=== PATIENT | female | born 1965 | race Caucasian/White ===

== ENCOUNTER 2017-12-12 11:15 | Emergency (ER) | payer SELFPAY ==
[~2017-12-12 11:15] MED LIST: BUSP15TA PO; CITA40TA4 PO; DIVA500T PO; GLUCTES27; METF500T PO; QUET1TAB10 PO; QUET1TAB8 PO
[2017-12-12 11:48] VITALS: BP 114/55; PULSE 96; RESP 18; TEMP 97.4; O2SAT 100
[2017-12-12 12:58] LABS: AUTOMATED NEUTROPHIL # 4.2 TH/MM3 (1.8-7.7); BASOPHIL % 0.5 % (0.0-2.0); EOSINOPHIL # 0.1 TH/MM3 (0-0.4); EOSINOPHIL % 1.4 % (0.0-4.0); HEMATOCRIT 41.2 % (35.0-46.0); HEMOGLOBIN 13.9 GM/DL (11.6-15.3); LYMPHOCYTE # 1.8 TH/MM3 (1.0-4.8); MEAN CORPUSCULAR HEMOGLOBIN 27.7 PG (27.0-34.0); MEAN CORPUSCULAR HGB CONC 33.7 % (32.0-36.0); MEAN PLATELET VOLUME 8.3 FL (7.0-11.0); MONO % 9.7 % (0.0-8.0); MONOCYTE # 0.7 TH/MM3 (0-0.9); NEUT % 61.4 % (16.0-70.0); PLATELET COUNT 253 TH/MM3 (150-450); RED BLOOD COUNT 5.02 MIL/MM3 (4.00-5.30); RED CELL DISTRIBUTION WIDTH 14.7 % (11.6-17.2); WHITE BLOOD COUNT 6.8 TH/MM3 (4.0-11.0)
[2017-12-12 13:05] LABS: BILIRUBIN, URINE NEG (NEG); BLOOD, URINE NEG (NEG); GLUCOSE,URINE 1000 mg/dL (NEG); KETONE, URINE NEG (NEG); NITRITE,URINE NEG (NEG); PH, URINE 5.5 (5.0-8.5); URINE COLOR LIGHT-YELLOW (YELLW/STRAW); URINE LEUKOCYTE ESTERASE NEG (NEG)
[2017-12-12 13:30] LABS: ALBUMIN 3.6 GM/DL (3.4-5.0); ALKALINE PHOSPHATASE 86 U/L (45-117); ALT (GPT) 22 U/L (10-53); AST (GOT) 19 U/L (15-37); BICARBONATE 25.8 MEQ/L (21.0-32.0); BLOOD UREA NITROGEN 20 MG/DL (7-18); CALCIUM 10.2 MG/DL (8.5-10.1); CHLORIDE 98 MEQ/L (98-107); CREATININE 0.98 MG/DL (0.50-1.00); GLOMERULAR FILTRATION RATE 60 ML/MIN (>89); GLUCOSE,RANDOM 417 MG/DL (74-106); SODIUM (NA) 134 MEQ/L (136-145); TOTAL BILIRUBIN ADULT 0.2 MG/DL (0.2-1.0); TOTAL PROTEIN 8.2 GM/DL (6.4-8.2)
[2017-12-12] MEDS ORDERED: METF500T PO (15:44)
--- NOTE | 2017-12-12 15:44 | PD ---
HPI Chief Complaint: Abdominal Pain Time Seen by Provider: 15:19 Travel History International Travel<30 days: No Contact w/Intl Traveler<30days: No Traveled to known affect area: No History of Present Illness HPI 51yo F with PMH of NIDDM presents to the ED with c/o upper abdominal pain starting at 9am today. Said it feels cold around her upper abdomen to her back. Said it happened after she drank chocolate milk. She took some peptol bismol and came to the ED. Denies any fever, chest pain, sob, n/v, dysuria, hematuria, diarrhea, focal weakness or numbness. PFSH Past Medical History Hx Anticoagulant Therapy: Yes (asa) Bipolar Disorder: Yes Anxiety: Yes Depression: Yes Cancer: No Cardiovascular Problems: No Cerebrovascular Accident: Yes Diabetes: Yes Endocrine: Yes Genitourinary: No Immune Disorder: No Musculoskeletal: No Neurologic: No Psychiatric: Yes Reproductive: No Respiratory: No Immunizations Current: No Thyroid Disease: Yes Tubal Ligation: Yes Past Surgical History Gynecologic Surgery: Yes (hysterectomy ) Other Surgery: No Social History Alcohol Use: Yes (occassional) Tobacco Use: No Substance Use: No Allergies-Medications (Allergen,Severity, Reaction): Coded Allergies: No Known Allergies (Unverified Adverse Reaction, Unknown, 12/12/17) Reported Meds & Prescriptions Reported Meds & Active Scripts Active Metformin (Metformin HCl) 500 Mg Tab 500 Mg PO DAILY With a meal Lizhi Next Blood Test Strips (Blood Glucose Test Strips) 1 Piedad Piedad 1 Strip .ROUTE DIRECTED Quetiapine (Quetiapine Fumarate) 300 Mg Tab 300 Mg PO HS Quetiapine (Quetiapine Fumarate) 100 Mg Tab 100 Mg PO BID Buspirone (Buspirone HCl) 15 Mg Tab 15 Mg PO TID Citalopram (Citalopram Hydrobromide) 40 Mg Tab 40 Mg PO DAILY Divalproex DR (Divalproex Sodium) 500 Mg Tabdr 500 Mg PO TID Metformin (Metformin HCl) 500 Mg Tab 500 Mg PO DAILY With a meal Review of Systems Except as stated in HPI: all other systems reviewed are Neg Physical Exam Narrative GENERAL: 51yo F not in distress. SKIN: Focused skin assessment warm/dry. HEAD: Atraumatic. Normocephalic. EYES: Pupils equal and round. No scleral icterus. No injection or drainage. CARDIOVASCULAR: Regular rate and rhythm. No murmur appreciated. RESPIRATORY: No accessory muscle use. Clear to auscultation. Breath sounds equal bilaterally. GASTROINTESTINAL: Abdomen soft, non-tender, nondistended. No rebound tenderness or guarding. No RUQ ttp. MUSCULOSKELETAL: No obvious deformities. No clubbing. No cyanosis. No edema. NEUROLOGICAL: Awake and alert. No obvious cranial nerve deficits. Motor grossly within normal limits. Normal speech. PSYCHIATRIC: Appropriate mood and affect; insight and judgment normal. Data Data Last Documented VS Vital Signs Date Time Temp Pulse Resp B/P (MAP) Pulse Ox O2 Delivery O2 Flow Rate FiO2 12/12/17 16:01 98 14 118/77 (91) 98 Room Air 12/12/17 11:48 97.4 Orders Orders Complete Blood Count With Diff (12/12/17 11:52) Comprehensive Metabolic Panel (12/12/17 11:52) Lipase (12/12/17 11:52) Urinalysis - C+S If Indicated (12/12/17 11:52) Metformin (Glucophage) (12/12/17 15:45) Ed Discharge Order (12/12/17 16:26) Labs Laboratory Tests Test 12/12/17 12:10 12/12/17 12:22 Urine Color LIGHT-YELLOW Urine Turbidity CLEAR Urine pH 5.5 Urine Specific [place] 1.041 Urine Protein NEG mg/dL Urine Glucose (UA) 1000 mg/dL Urine Ketones NEG mg/dL Urine Occult Blood NEG Urine Nitrite NEG Urine Bilirubin NEG Urine Urobilinogen LESS THAN 2.0 MG/DL Urine Leukocyte Esterase NEG Urine RBC LESS THAN 1 /hpf Urine WBC LESS THAN 1 /hpf Microscopic Urinalysis Comment CULT NOT INDICATED White Blood Count 6.8 TH/MM3 Red Blood Count 5.02 MIL/MM3 Hemoglobin 13.9 GM/DL Hematocrit 41.2 % Mean Corpuscular Volume 82.0 FL Mean Corpuscular Hemoglobin 27.7 PG Mean Corpuscular Hemoglobin Concent 33.7 % Red Cell Distribution Width 14.7 % Platelet Count 253 TH/MM3 Mean Platelet Volume 8.3 FL Neutrophils (%) (Auto) 61.4 % Lymphocytes (%) (Auto) 27.0 % Monocytes (%) (Auto) 9.7 % Eosinophils (%) (Auto) 1.4 % Basophils (%) (Auto) 0.5 % Neutrophils # (Auto) 4.2 TH/MM3 Lymphocytes # (Auto) 1.8 TH/MM3 Monocytes # (Auto) 0.7 TH/MM3 Eosinophils # (Auto) 0.1 TH/MM3 Basophils # (Auto) 0.0 TH/MM3 CBC Comment DIFF FINAL Differential Comment Blood Urea Nitrogen 20 MG/DL Creatinine 0.98 MG/DL Random Glucose 417 MG/DL Total Protein 8.2 GM/DL Albumin 3.6 GM/DL Calcium Level 10.2 MG/DL Alkaline Phosphatase 86 U/L Aspartate Amino Transf (AST/SGOT) 19 U/L Alanine Aminotransferase (ALT/SGPT) 22 U/L Total Bilirubin 0.2 MG/DL Sodium Level 134 MEQ/L Potassium Level 4.8 MEQ/L Chloride Level 98 MEQ/L Carbon Dioxide Level 25.8 MEQ/L Anion Gap 10 MEQ/L Estimat Glomerular Filtration Rate 60 ML/MIN Lipase 191 U/L [facility] Medical Decision Making Medical Screen Exam Complete: Yes Emergency Medical Condition: Yes Differential Diagnosis Pancreatitis vs. colitis vs. gastroenteritis Narrative Course 51yo F with abdominal pain that started at 9am today. Labs were drawn at triage. However, pt said her abdominal pain has completely resolved now. Pt has no abdominal tenderness to palpation. Labs reviewed, no leukocytosis. H/H normal. BUN mildly elevated at 20. Pt tolerating PO and can hydrate orally. Glucose is elevated at 417. CO2 normal. No increased anion gap. LFT normal. Lipase normal. Pt said she has not been taking her metformin 500mg daily since she only have a few pills left and her primary care physician wont give her a refill until her appointment. Pt did not take it today. Pt given metformin. UA showed no blood. No leukocyte. Labs reassuring and pt has no complaints now. Return precautions given. Diagnosis Primary Impression: Uncontrolled blood glucose Patient Instructions: General Instructions Departure Forms: Tests/Procedures Additional Instructions: Please follow up with your primary care physician as soon as you can. Return to the ED if symptoms return. Med/Other Pt SpecificInfo: Prescription(s) given Scripts Metformin (Metformin) 500 Mg Tab 500 MG PO DAILY for Blood Sugar Management, #14 TAB 0 Refills With a meal Prov: JayAmaya DO 12/12/17 Disposition: 01 DISCHARGE HOME Condition: Stable Amaya Jay DO Dec 12, 2017 15:44
[2017-12-12] MEDS ORDERED: metFORMIN HCL 500 MG TAB PO ONE (15:45)
[2017-12-12 16:01] VITALS: BP 118/77; PULSE 98; RESP 14; O2SAT 98
[2017-12-12 16:41] VITALS: TEMP 97.6
== END 2017-12-12 17:02 | disposition home or self-care (01) ==
LOC: NEPD 11:15
DX: E11.65 Type 2 diabetes mellitus with hyperglycemia (principal); R10.10 Upper abdominal pain, unspecified; E07.9 Disorder of thyroid, unspecified; F31.9 Bipolar disorder, unspecified; F41.9 Anxiety disorder, unspecified; Z86.73 Personal history of transient ischemic attack (TIA), and cerebral infarction without residual deficits
CPT/HCPCS: 80053; 81001; 83690; 85025; 99283